=== PATIENT | male | born 1995 | race African-American/Black ===

== ENCOUNTER 2016-07-20 16:52 | Emergency (ER) | payer OTHER ==
[~2016-07-20] VITALS: Ht 167.6 cm; Wt 76.6 kg
[~2016-07-20 16:52] MED LIST: ADVAIR 100-501 EACH IH; ADVAIR 250/501 DISK IH; MEDROL DOSEPAK4 MG PO; PREDNISONE20 MG PO; PREDNISONE50 MG PO; PROAIR HFA8.5 GM IH; PROVENTIL2.5 MG/3 M IH; SINGULAIR10 MG PO
[2016-07-20 17:46] LABS: MCH 30.5 PG (29.0-34.0); MCHC 35.6 G/DL (30.0-36.0); MCV 85.7 FL (86-99); MEAN PLAT.VOLUME 8.9 uM^3 (9.0-12.4); PLATELET COUNT 423 K/uL (156-360); RBC DIS.WIDTH-CV 11.5 % (11.8-14.6); RBC DIS.WIDTH-SD 35.5 % (39-53); WHITE BLOOD COUNT 16.1 K/uL (4.1-10.2)
[2016-07-20 17:57] LABS: CHLORIDE 106 mEq/L (99-109); POTASSIUM 4.3 mEq/L (3.7-5.4); SODIUM 143 mEq/L (136-147)
[2016-07-20 17:59] LABS: GLUCOSE 100 mg/dL (70-99)
[2016-07-20 18:00] LABS: ANION GAP 13 MEQ/L (2-14)
[2016-07-20 18:03] LABS: GFR ESTIMATE (CALCULATED) > 59 mL/min/
[2016-07-20 18:04] LABS: UREA NITROGEN (BUN) 22 mg/dL (9-23)
[2016-07-20] MEDS ORDERED: PREDNISONE50 MG PO (19:57)
[2016-07-20 20:15] VITALS: BP 118/65
== END 2016-07-20 20:17 | disposition home or self-care (01) ==
LOC: EME 16:52
DX: J45.901 Unspecified asthma with (acute) exacerbation (principal); R00.0 Tachycardia, unspecified
CPT/HCPCS: 71020; 80048; 85027; 93005; 94644; 99281; 99284; J7512

== ENCOUNTER 2017-01-31 06:25 | Emergency (ER) | payer OTHER ==
[~2017-01-31] VITALS: Ht 167.6 cm; Wt 79.2 kg
[2017-01-31] MEDS ORDERED: PROVENTIL HFA6.7 GM IH (08:10)
[2017-01-31 08:43] VITALS: BP 128/72
== END 2017-01-31 08:20 | disposition home or self-care (01) ==
LOC: EME → EDBD 06:25 → EME 08:20
DX: J45.901 Unspecified asthma with (acute) exacerbation (principal)
CPT/HCPCS: 71010; 99281; 99285; J0171; J1100; J7644